=== PATIENT | female | born 2000 | race Two or more races ===

== ENCOUNTER 2021-03-02 00:17 | Emergency (ER) | payer OTHER ==
[~2021-03-02] VITALS: Ht 162.6 cm; Wt 72.6 kg
[2021-03-02] MEDS ORDERED: LORAZEPAM 1 MG TABLET PO ONE (01:00)
[2021-03-02] MEDS ORDERED: LORAZEPAM 1 MG TABLET ONE (01:01)
--- NOTE | 2021-03-02 01:23 | NUR ---
Patient discharged to home in stable condition. Written and verbal after care instructions given. Patient verbalizes understanding of instruction. Pt ambulatory with a steady gait
[2021-03-02 01:27] VITALS: BP 118/67
== END 2021-03-02 01:37 | disposition home or self-care (01) ==
LOC: ER 00:24
DX: F41.9 Anxiety disorder, unspecified (principal); F12.90 Cannabis use, unspecified, uncomplicated